=== PATIENT | male | born 1980 | race African-American/Black ===

== ENCOUNTER 2016-03-31 03:10 | Emergency (ER) | payer MEDICAID ==
[~2016-03-31] VITALS: Ht 180.3 cm; Wt 90.7 kg
[2016-03-31 04:15] VITALS: BP 145/90
[2016-03-31 05:00] LABS: DEFINITIVE VIEW TRANSMISSION; Hematocrit 48.9 % (41.0-53.0); Hemoglobin 15.3 g/dL (13.5-17.5); Mean Corpuscular Hemoglobin 27.5 pg (28.0-32.0); Mean Corpuscular Hgb Conc. 31.3 g/dL (32.0-36.0); Mean Corpuscular Volume 87.8 fL (80.0-100.0); Mean Platelet Volume 8.9 fL (7.4-10.4); Platelet Count (auto) 281 10^3/uL (140-450); Red Cell Distribution Width 14.2 % (11.6-16.0); SUSPECT VIEW TRANSMISSION
[2016-03-31 05:04] LABS: Metamyelocytes % 0; Myelocytes % 0; Promyelocytes % 0; Reactive Lymphocytes 0
[2016-03-31 05:21] LABS: Albumin 4.1 g/dL (3.4-5.0); BUN/Creatinine Ratio 10.2; Bilirubin, Total 0.5 mg/dL (0.2-1.0); Calcium 9.2 mg/dL (8.5-10.1); Potassium 3.7 mmol/L (3.5-5.1)
[2016-03-31 05:27] LABS: Platelet Estimate Adequate; RBC Morphology Normal
[2016-03-31 07:36] LABS: Urine Bilirubin Negative (Negative); Urine Blood Negative /uL (Negative); Urine Color Yellow (Yellow); Urine Glucose Normal (Normal); Urine Ketone Negative (Negative); Urine Nitrite Negative (Negative); Urine RBC 2 /hpf (0 - 3); Urine Urobilinogen Normal (Negative)
[2016-03-31] MEDS ORDERED: LIDOCAINE 1% HCL (LOCAL ANESTH.) INJ 20ML MDV ID ONE (08:30)
[2016-03-31] MEDS ORDERED: TETANUS-DIPTH-ACEL PERTUSSIS 0.5ML SYRG IM ONE (08:30)
[2016-03-31] MEDS ORDERED: ONDANSETRON HCL 4 MG/2 ML VIAL IV ONE (10:30)
[2016-03-31] MEDS ORDERED: HYDROmorphone HCL 2 MG/ML VL IV ONE (10:30)
== END 2016-03-31 13:51 | disposition home or self-care (01) ==
LOC: ER 03:10
DX: S92.901A Unspecified fracture of right foot, initial encounter for closed fracture (principal); S51.812A Laceration without foreign body of left forearm, initial encounter; M10.9 Gout, unspecified; F17.210 Nicotine dependence, cigarettes, uncomplicated; Z23 Encounter for immunization; F12.10 Cannabis abuse, uncomplicated; V89.2XXA Person injured in unspecified motor-vehicle accident, traffic, initial encounter; Y93.89 Activity, other specified; Y92.89 Other specified places as the place of occurrence of the external cause
CPT/HCPCS: 12002; 29515; 36415; 70450; 72125; 73630; 80053; 81001; 85007; 85027; 90471; 90715; 93005; 96374; 96375; 99285; G0434; J1170; J2001; J2405

== ENCOUNTER 2018-08-05 19:49 | Emergency (ER) | payer MEDICAID ==
[~2018-08-05] VITALS: Ht 180.3 cm; Wt 97.5 kg
[2018-08-05 20:01] VITALS: BP 140/94
== END 2018-08-05 23:22 | disposition left against medical advice (07) ==
LOC: ER 19:51
DX: S60.511A Abrasion of right hand, initial encounter (principal); S50.812A Abrasion of left forearm, initial encounter; Z53.21 Procedure and treatment not carried out due to patient leaving prior to being seen by health care provider; V49.9XXA Car occupant (driver) (passenger) injured in unspecified traffic accident, initial encounter; Y93.89 Activity, other specified; Y92.488 Other paved roadways as the place of occurrence of the external cause; Y99.8 Other external cause status